=== PATIENT | female | born 1970 | race Caucasian/White ===

== ENCOUNTER → 2018-12-29 | Day surgery (SDC) | payer OTHER ==
[~2018-12-29] MED LIST: MACROBID 100 M100 MG PO; ULTRACET PO; VALSART PO
== END | disposition home or self-care (01) ==
LOC: ADM 12-23 07:15 → CIR.AMB 05:37
DX: N39.3 Stress incontinence (female) (male) (principal)
CPT/HCPCS: 57288; C1771